=== PATIENT | female | born 1965 | race Hispanic/Latino ===

== ENCOUNTER → 2019-06-11 | Outpatient (CLI) | payer BC ==
[~2019-06-11] MED LIST: BUTRANS1 EAC1 TD; CYCLOBENZAPRINE10 MG PO; ENALAPRIL MALEA20 MG PO; HYDROCODON-ACE1 EAC9 PO; LEFLUNOMIDE20 MG PO; MELOXICAM7.5 MG PO; OMEPRAZOLE MAGN20 MG PO; PREDNISONE10 MG PO; PROMETHAZINE HC25 M1 PO; REMICADE100 MG/VIA IM
--- NOTE | 2019-06-15 09:57 | Diagnostic Imaging Report ---
Exam: Bone mineral density study. History: Osteopenia. Comparison: None Discussion: Evaluation of the left hip, and lumbar spine was performed utilizing DEXA Hologic bone densitometer. The study is technically adequate. Left hip total bone mineral density: 0.937gm/cm2, T-score is -0.2, Z-score is 0.6. Left hip femoral neck bone mineral density: 0.864gm/cm2, T-score is -0.1, Z-score is 1.0. Lumbar spine total bone mineral density:1.365gm/cm2, T-score is2.9, Z-score is 4.0. Impression: 1. Normal bone mineral density of the left hip, fracture risk is not increased. 2. Normal bone mineral density of the lumbar spine, fracture risk is not increased. Least significant change (LSC) for bone mineral density as provided by well service derrick worker is 0.023 g/cm2 for lumbar spine and 0.027 g/cm2 for total hip. 10 -year fracture risk per WHO Fracture Risk Assessment Tool (FRAX) for: Not reported because all T-scores at or above -1.0 The patient's fracture risk is compared to an age-matched control. Medical evaluation for secondary causes of low bone bone mineral density may be appropriate. Correlate clinically for the necessity and timing of the next bone mineral density study. Signed by: Dr. Jasiel Oseguera M.D. on 06/15/2019 9:54 AM
--- NOTE | 2019-06-17 09:13 | Diagnostic Imaging Report ---
#[id number] - MGSCRBIL #BILATERAL DIGITAL SCREENING MAMMOGRAM WITH CAD: 06/11/2019 CLINICAL: Routine screening. Comparison is made to exams dated: 04/03/2016 mammogram and 10/21/2012 mammogram - [facility]. Current study contains 4 films. There are scattered fibroglandular elements in both breasts. Current study was also evaluated with a Computer Aided Detection (CAD) system. There are stable benign calcifications in both breasts. There also is a stable benign density in the left breast. No significant masses, calcifications, or other findings are seen in either breast. IMPRESSION: BENIGN There is no mammographic evidence of malignancy. A 1 year screening mammogram is recommended. The patient will be notified by letter of the results. RONEY SHEIKH M.D. ct/penrad:06/16/2019 18:15:32 Plasterer Rough: Maty LARES(Ferny)(Herbert), [facility] letter sent: Normal Exam Mammogram BI-RADS: 2 Benign
== END ==
LOC: MAMMO 09:01
PROVIDERS: ATTEND Family Medicine
DX: Z12.31 Encounter for screening mammogram for malignant neoplasm of breast (principal); Z13.820 Encounter for screening for osteoporosis
CPT/HCPCS: 77067; 77080

== ENCOUNTER → 2021-09-04 | Outpatient (CLI) | payer OTHER | LOC: MAMMO 13:27 | PROVIDERS: ATTEND Family Medicine | DX: Z12.31 Encounter for screening mammogram for malignant neoplasm of breast (principal) | CPT/HCPCS: 77067 ==